=== PATIENT | male | born 1965 | race Caucasian/White ===

== ENCOUNTER 2022-11-18 08:43 | Outpatient (CLI) | payer BC, SELFPAY ==
[2022-11-18 13:49] LABS: Albumin* 3.5 g/dL (3.3-5.0); Chloride* 105 mmol/L (96-114)
[2022-11-18 13:50] LABS: Sodium* 140 mmol/L (135-149)
[2022-11-18 13:52] LABS: Alkaline Phosphatase* 79 U/L (40-150); Aspartate Amino Transferase* 32 U/L (12-35); Bilirubin Total* 0.5 mg/dL (0.1-1.5); Blood Urea Nitrogen* 15 mg/dL (7-30); Carbon Dioxide* 29 mmol/L (20-32); Cholesterol* 178 mg/dL (90-199); Estimated Glomerular Filt Rate 89 ml/min; Glucose* 111 mg/dL (60-115); Total Protein* 6.5 g/dL (6.0-8.3)
[2022-11-18 13:53] LABS: Alanine Aminotransferase* 36 U/L (4-50); Calcium* 8.9 mg/dL (8.4-10.6); HDL Cholesterol* 48 mg/dL (>=40); LDL Cholesterol Calculated 96 mg/dL (<100); Triglycerides* 170 mg/dL (40-149)
[2022-11-18 14:22] LABS: PSA Screen* 0.51 ng/mL (0.10-4.00)
== END 2022-11-18 08:44 | disposition home or self-care (01) ==
PROVIDERS: PCP Family Medicine; Visit Provider Family Medicine
DX: Z12.5 Encounter for screening for malignant neoplasm of prostate (principal); Z13.1 Encounter for screening for diabetes mellitus; Z13.6 Encounter for screening for cardiovascular disorders
CPT/HCPCS: 80053; 80061; 84153

== ENCOUNTER 2023-12-24 08:29 | Outpatient (CLI) | payer BC, SELFPAY | END 2023-12-24 08:30 | disposition home or self-care (01) | LOC: LKVREF 08:30 | PROVIDERS: PCP Family Medicine; Visit Provider Family Medicine | DX: I10 Essential (primary) hypertension (principal) | CPT/HCPCS: 80048 ==

== ENCOUNTER 2023-12-31 07:55 | Outpatient (CLI) | payer BC, SELFPAY | END 2023-12-31 07:56 | disposition home or self-care (01) | LOC: NFLDREF 01-02 06:56 | PROVIDERS: PCP Family Medicine; Referring Provider Family Medicine; Visit Provider Family Medicine | DX: R73.01 Impaired fasting glucose (principal) | CPT/HCPCS: 82947 ==

== ENCOUNTER 2024-12-29 08:20 | Outpatient (CLI) | payer BC, SELFPAY | END 2024-12-29 08:21 | disposition home or self-care (01) | PROVIDERS: PCP Family Medicine; Visit Provider Family Medicine | DX: I10 Essential (primary) hypertension (principal); Z13.6 Encounter for screening for cardiovascular disorders; Z13.1 Encounter for screening for diabetes mellitus; Z12.5 Encounter for screening for malignant neoplasm of prostate | CPT/HCPCS: 80048; 80061; G0103 ==

== ENCOUNTER 2025-03-25 15:14 | Outpatient (CLI) | payer BC, SELFPAY ==
--- NOTE | 2025-03-25 15:30 | CRLHL7_ITS ---
For Patients: As a result of the Century Cures Act, medical imaging exams and procedure reports are released immediately into your electronic medical record. You may view this report before your referring provider. If you have questions, please contact your health care provider. INDICATION: Shoulder neck pain. COMPARISON: 03/18/2025 TECHNIQUE: Sagittal T1, T2, and STIR sequences. Axial T2/gradient sequences. FINDINGS: Normal vertebral body facet alignment. No fractures. No vertebral body loss of height. No spondylosis. No ligamentous injury. No suspicious osseous lesions. Normal cord signal. No intradural mass or lesion. C1-2: No spinal canal narrowing. C2-3: No spinal canal or neural foraminal narrowing. C3-4: Disk degeneration broad-based disc osteophyte complex. No narrowing of spinal canal. Mild narrowing of bilateral foramina. C4-5: Disc generation broad-based disc osteophyte complex. Mild narrowing of spinal canal. Moderate right and mild left neural foraminal narrowing. C5-6: Disc generation posterior disc bulging disc osteophyte complex. No narrowing of spinal canal. Moderate narrowing of bilateral foramina. C6-7: Disc degeneration and posterior disc bulge disc osteophyte complex. Moderate narrowing of spinal canal. Moderate to severe narrowing of bilateral foramina. Potential impingement of the C7 nerve roots. C7-T1: No spinal canal or neural foraminal narrowing. No spinal canal or neural foraminal narrowing in the visualized upper thoracic spine. IMPRESSION: 1. Normal alignment. No fractures. 2. Normal cord signal. 3. At C3-4, mild narrowing of the bilateral neural foramina 4. At C4-5, moderate right and mild left neural foraminal narrowing. 5. At C5-6, moderate narrowing of the bilateral neural foramina 6. At C6-7, moderate narrowing of the spinal canal. Moderate to severe narrowing of the bilateral neural foramina Dictated by Scottie Mullins MD @ 03/26/2025 12:17:20 AM (Electronically Signed)
== END 2025-03-25 15:15 | disposition home or self-care (01) ==
LOC: MRI 15:15
PROVIDERS: PCP Family Medicine; Visit Provider Family Medicine
DX: M25.511 Pain in right shoulder (principal); M50.21 Other cervical disc displacement, high cervical region; M50.222 Other cervical disc displacement at C5-C6 level; M50.223 Other cervical disc displacement at C6-C7 level
CPT/HCPCS: 72141; 73221